=== PATIENT | male | born 1960 | race Caucasian/White ===

== ENCOUNTER 2019-04-09 19:46 | Emergency (ER) | payer BC ==
[2019-04-09] MEDS ORDERED: LIDOCAINE 1% INJ-PF (10 MG/ML) 30 ML SDV INJ ONE (20:35)
--- NOTE | 2019-04-09 20:38 | ER Document Report ---
ED Medical Screen (RME) - General Chief Complaint: Fall Injury Stated Complaint: FALL-FACIAL INJURY Time Seen by Provider: 04/09/19 20:24 Notes: Patient is a 4-year-old male who presents to the emergency department after a fall. He was walking to simply and ended up falling and hitting his head on the concrete. He sustained a laceration to left inferior chin. Patient is under the influence of alcohol. Exam: Patient is able to move neck 45 degrees. Laceration noted to left inferior left side of chin and abrasions noted to face. I have greeted and performed a rapid initial assessment of this patient. A comprehensive ED assessment and evaluation of the patient, analysis of test results and completion of medical decision making process will be conducted by an additional ED providers. TRAVEL OUTSIDE OF THE [place] IN LAST 30 DAYS: No Past Medical History - Social History Chew tobacco use (# tins/day): No Frequency of alcohol use: daily-heavy
[2019-04-09 22:09] LABS: ABSOLUTE EOSINOPHILS # (AUTO) 0.3 10^3/uL (0.0-0.6); ABSOLUTE LYMPHOCYTES (AUTO) 1.7 10^3/uL (0.5-4.7); ABSOLUTE MONOCYTES (AUTO) 0.5 10^3/uL (0.1-1.4); ABSOLUTE NEUT (AUTO) 3.2 10^3/uL (1.7-8.2); BASOPHILS % (AUTO) 0.6 % (0-2); EOSINOPHILS % (AUTO) 4.9 % (0-6); HEMATOCRIT 43.6 % (37.9-51.0); HEMOGLOBIN 14.5 g/dL (13.5-17.0); MEAN CORPUSCULAR HEMOGLOBIN 32.7 pg (27.0-33.4); MEAN CORPUSCULAR HGB CONC 33.2 g/dL (32.0-36.0); MEAN CORPUSCULAR VOLUME 98 fl (80-97); MONOCYTES % (AUTO) 8.1 % (3-13); RED BLOOD COUNT 4.43 10^6/uL (4.35-5.55); RED CELL DISTRIBUTION WIDTH 16.2 % (11.5-14.0); SEGMENTED NEUTROPHILS % (AUTO) 56.4 % (42-78); TOTAL CELLS COUNTED % (AUTO) 100 %; WHITE BLOOD COUNT 5.7 10^3/uL (4.0-10.5)
[2019-04-09 22:22] LABS: ALBUMIN 4.6 g/dL (3.5-5.0); ALKALINE PHOSPHATASE 164 U/L (38-126); ANION GAP 13 (5-19); ASPARTATE AMINO TRANSFERASE 107 U/L (17-59); BILIRUBIN,DIRECT 0.2 mg/dL (0.0-0.4); BILIRUBIN,TOTAL 1.4 mg/dL (0.2-1.3); BLOOD UREA NITROGEN 8 mg/dL (7-20); CARBON DIOXIDE 27 mmol/L (22-30); CHLORIDE 107 mmol/L (98-107); GLUCOSE 110 mg/dL (75-110); POTASSIUM 4.7 mmol/L (3.6-5.0); TOTAL PROTEIN 8.1 g/dL (6.3-8.2)
[2019-04-09 22:27] LABS: PLATELET COUNT 78 10^3/uL (150-450)
--- NOTE | 2019-04-09 22:34 | RADIOLOGY REPORT (SQ) ---
CT BRAIN AND CERVICAL SPINE EXAM DATE: 04/09/2019 8:35 PM CDT HISTORY: Trauma. COMPARISON: None. TECHNIQUE: CT scan of the brain and cervical spine without IV contrast. This exam was performed according to our departmental dose-optimization program, which includes automated exposure control, adjustment of the mA and/or kV according to patient size and/or use of iterative reconstruction technique. FINDINGS: BRAIN: The ventricles, cisterns, and sulci are age-appropriate. No evidence of acute infarction, intracranial hemorrhage, extra-axial fluid collection, or midline shift. Partial opacification of multiple bilateral ethmoid air cells. No depressed skull fracture. There is mild right frontal scalp hematoma. CERVICAL SPINE: No acute cervical fracture or prevertebral soft tissue swelling. There is straightening of the normal cervical lordosis, which may be due to cervical collar, muscle spasm, or patient positioning. The facet joints are preserved. Mild multilevel degenerative disc disease present. There are multilevel disc bulges but without advanced canal stenosis identified. IMPRESSION: 1. No acute intracranial hemorrhage. 2. No acute fracture or subluxation of the cervical spine.
[2019-04-09 22:39] LABS: ALCOHOL 346 mg/dL (NONE DETECTED)
--- NOTE | 2019-04-09 23:46 | RADIOLOGY REPORT (SQ) ---
EXAM DESCRIPTION: XR RIBS UNILATERAL WITH CHEST COMPLETED DATE/TME: 04/09/2019 22:54 CLINICAL HISTORY: 58 years, Male, left side rib pain COMPARISON: None. NUMBER OF VIEWS: Four TECHNIQUE: Frontal and oblique radiographs of the chest were obtained LIMITATIONS: None. FINDINGS: Cardiac and mediastinal contours are normal. Lungs are clear. No pleural effusion or pneumothorax. No definite acute rib fractures are identified. IMPRESSION: No acute disease; no rib fracture identified. copyright 2010 [employer]- All Rights Reserved
[2019-04-10] MEDS ORDERED: LIDOCAINE 1% INJ-PF (10 MG/ML) 30 ML SDV ONE (00:50)
[2019-04-10] MEDS ORDERED: LIDOCAINE 1%/EPINEPHRINE INJ 20 ML VIAL INJ ONE (02:55)
--- NOTE | 2019-04-10 02:59 | ER Document Report ---
ED Fall - General Chief Complaint: Fall Injury Stated Complaint: FALL-FACIAL INJURY Time Seen by Provider: 04/09/19 20:24 Notes: Patient is a 58-year-old male that comes emergency department for chief complaint of a fall. Patient fell onto concrete after he became intoxicated with alcohol. He sustained abrasions to his forehead and a laceration to his left chin area. Patient was not knocked out, has not vomited. He is not on a blood thinner. Tetanus is reportedly up-to-date. His is with him at bedside. TRAVEL OUTSIDE OF THE [place] IN LAST 30 DAYS: No - Related data Allergies/Adverse Reactions: No Known Allergies Allergy (Unverified 04/10/19 00:48) Past Medical History - General Information source: Patient - Social History Smoking Status: Current Every Day Smoker Chew tobacco use (# tins/day): No Smoking Education Provided: Yes - <3 min Frequency of alcohol use: daily-heavy Lives with: Family Family History: Reviewed & Not Pertinent Patient has suicidal ideation: No Patient has homicidal ideation: No - Past Medical History Cardiac Medical History: Reports: Hx Atrial Fibrillation - Immunizations Immunizations up to date: Yes Hx Diphtheria, Pertussis, Tetanus Vaccination: Yes Review of Systems - Review of Systems Constitutional: No symptoms reported EENT: No symptoms reported Cardiovascular: No symptoms reported Respiratory: No symptoms reported Gastrointestinal: No symptoms reported Genitourinary: No symptoms reported Male Genitourinary: No symptoms reported Musculoskeletal: See HPI Skin: See HPI Hematologic/Lymphatic: No symptoms reported Neurological/Psychological: See HPI Physical Exam - Vital signs Vitals: Temp Pulse Resp BP Pulse Ox 97.8 F 69 16 122/82 100 04/10/19 01:00 04/10/19 01:00 04/10/19 01:00 04/10/19 01:00 04/10/19 01:00 - Notes Notes: GENERAL: Alert, interacts well. No acute distress. Occasionally slurs his words HEAD: Normocephalic. 2 cm irregular laceration over the inferior chin. Otherwise there are abrasions to the forehead but no other open wounds. Slight ecchymosis around the abrasions on the forehead. EYES: Pupils equal, round, and reactive to light. Extraocular movements intact. ENT: Oral mucosa moist, tongue midline. Oropharynx unremarkable. Airway patent. Nares patent, no nasal septal hematoma, TM's intact. NECK: Full range of motion. Supple. Trachea midline. LUNGS: Clear to auscultation bilaterally, no wheezes, rales, or rhonchi. No respiratory distress. Tenderness with palpation over the left mid ribs without signs of trauma or noted severe tenderness or crepitus. HEART: Regular rate and rhythm. No murmur ABDOMEN: Soft, non-tender. Non-distended. Bowel sounds present in all 4 quadrants. GENITOURINARY: Deferred EXTREMITIES: Moves all 4 extremities spontaneously. No edema, normal radial and dorsalis pedis pulses bilaterally. No cyanosis. BACK: no cervical, thoracic, lumbar midline tenderness. No saddle anesthesia, normal distal neurovascular exam. Moves all extremities in full range of motion. NEUROLOGICAL: Alert and oriented x3. Occasional slurring of speech. Cranial nerves II through XII grossly intact. PSYCH: Normal affect, normal mood. SKIN: Warm, dry, normal turgor. No rashes or lesions noted. Course - Re-evaluation Re-evalutation: Head CT and cervical spine CT without acute abnormality. Patient is alert and oriented on my exam. He is only mildly intoxicated on my exam with only occasional slurring of speech but he is steady on his feet. He does have mild pain with palpation over the left ribs but no bruising or swelling, no signs of trauma. Lungs clear, no hypoxia, no respiratory distress. He will still be given incentive spirometer to avoid pneumonia. Suspect rib contusion. Providing with muscle relaxers. Wound was repaired, discussed wound precautions, head injury precautions, patient and state appreciation, requesting to go home, discharged with return precautions. They state understanding and agreement. - Vital Signs Vital signs: Temp Pulse Resp BP Pulse Ox 97.7 F 76 17 131/81 H 98 04/10/19 03:36 04/10/19 03:36 04/10/19 03:36 04/10/19 03:36 04/10/19 03:36 - Laboratory Result Diagrams: 04/09/19 21:30 04/09/19 21:30 Laboratory results interpreted by me: 04/09/19 04/09/19 21:30 21:30 MCV 98 H RDW 16.2 H Plt Count 78 L Sodium 146.5 H Total Bilirubin 1.4 H AST 107 H Alkaline Phosphatase 164 H Serum Alcohol 346 H* Procedures - Laceration/Wound Repair chin Wound length (cm): 2 Wound's Depth, Shape: Irregular Laceration pre-procedure: Sterile PPE donned, Sterile drapes applied, Shur-Clens applied Anesthetic type: 1% Lidocaine w/epi Volume Anesthetic (mLs): 3 Wound explored: Clean, No foreign body removed Wound Repaired With: Sutures Suture Size/Type: 5:0, Nylon Number of Sutures: 5 Layer Closure?: No Post-procedure wound care: Sterile dressing applied, Splint applied Post-procedure NV exam normal: Yes Complications: No Discharge - Discharge Clinical Impression: Rib pain on left side Alcohol intoxication Qualifiers: Complication of substance-induced condition: with unspecified complication Qualified Code(s): F10.929 - Alcohol use, unspecified with intoxication, unspecified Fall Qualifiers: Encounter type: initial encounter Qualified Code(s): W19.XXXA - Unspecified fall, initial encounter Chin laceration Qualifiers: Encounter type: initial encounter Qualified Code(s): S01.81XA - Laceration without foreign body of other part of head, initial encounter Forehead abrasion Qualifiers: Encounter type: initial encounter Qualified Code(s): S00.81XA - Abrasion of other part of head, initial encounter Condition: Stable Disposition: HOME, SELF-CARE Additional Instructions: The CAT scan imaging of your head and neck do not show any concerning finding, this is the same for the ribs. You will likely have bruised ribs, I recommend that you use the incentive spirometer to make sure that you take deep breaths multiple times a day to avoid pneumonia. You can take [id number] Tylenol or ibuprofen, you can take the muscle relaxer as prescribed. Avoid drinking alcohol to intoxication. The sutures need to be removed in about 5 to 7 days at a medical facility. Keep clean, clean with soap and water, you can apply thin film of topical antibiotic to the area. Follow head injury precautions listed below. Return for any concerning symptoms. Head Injury Precautions At this point, there is no evidence that your head injury is serious. Observation is necessary, however. Limit activity for the first 24 hours. During the first 24 hours, check to see approximately every two to three hours that the patient is easily arousable, responds normally, and can perform common tasks such as walking without difficulty. Contact your doctor or go to the hospital if any of the following things occur: Persistent vomiting, difficulty in arousing the patient, worsening or continued headache, or failure to improve as expected. Head injuries can cause symptoms that persist for a few days or even a few weeks. Prescriptions: Methocarbamol [Robaxin-750] 750 mg PO QID PRN #20 tablet PRN Reason: Forms: Return to Work
[2019-04-10 03:37] VITALS: BP 131/81
== END 2019-04-10 03:37 | disposition home or self-care (01) ==
LOC: ER 19:46
DX: S00.81XA Abrasion of other part of head, initial encounter (principal); R07.81 Pleurodynia; S01.81XA Laceration without foreign body of other part of head, initial encounter; W18.30XA Fall on same level, unspecified, initial encounter; F10.929 Alcohol use, unspecified with intoxication, unspecified; F17.200 Nicotine dependence, unspecified, uncomplicated; I48.91 Unspecified atrial fibrillation
CPT/HCPCS: 36415; 80307; 85025; 80053; 71101; 70450; 72125; 12011; J3490 ×2; 99284